=== PATIENT | female | born 1970 | race African-American/Black ===

== ENCOUNTER 2018-05-26 21:13 | Emergency (ER) | payer MEDICAID, OTHER ==
[~2018-05-26] VITALS: Ht 165.1 cm; Wt 61.2 kg
[~2018-05-26 21:13] MED LIST: ALBUTEROL SULF8.5 GM INH; BACITRACIN15 GM TOPIC; IBUPROFEN600 MG ORAL; NKM; PHENERGAN6.25 MG/5 ORAL
[2018-05-26] MEDS ORDERED: NKM (21:19)
[2018-05-26 21:30] VITALS: BP 143/74
[2018-05-26] MEDS ORDERED: Augmentin 875mg Tab ORAL ONE (21:30)
[2018-05-26] MEDS ORDERED: HYDROcodone/Acetamin 5/325 tab ORAL ONE (21:30)
[2018-05-26] MEDS ORDERED: Bacitracin Oint UD TOPIC ONE (21:30)
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
[2018-05-26] MEDS ORDERED: IBUPROFEN600 MG ORAL (22:19)
[2018-05-26] MEDS ORDERED: HYDROCODON-ACE1 EA15 ORAL (22:19)
[2018-05-26] MEDS ORDERED: AUGMENTIN 875-1 EAC1 ORAL (22:19)
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
--- NOTE | 2018-05-26 22:35 | NUR ---
ED Nurse Note: Pt cleared by MD. Dominguez/Harleen, ambulatory with steady gait. Discharge instructions and prescriptions were provided. Pt verbalized understanding of all instructions. ID band removed. VSS. All belongings were taken with patient
== END 2018-05-26 22:35 | disposition home or self-care (01) ==
LOC: EDUNIT# 21:13 → EDBD 21:13 → EDUNIT# 21:44 → EMR 21:44
DX: S61.351A Open bite of left index finger with damage to nail, initial encounter (principal); S62.638A Displaced fracture of distal phalanx of other finger, initial encounter for closed fracture; Y04.1XXA Assault by human bite, initial encounter; Y92.89 Other specified places as the place of occurrence of the external cause
CPT/HCPCS: 99283